=== PATIENT | female | born 1970 | race Two or more races ===

== ENCOUNTER → 2024-08-30 | Outpatient (CLI) | payer MEDICAID, SELFPAY ==
--- NOTE | 2024-08-30 09:15 | XR_ITS ---
Examination: Screening digital mammography, bilateral Computer aided detection 3-D breast Tomosynthesis, bilateral Date and time of exam: 08/30/2024, 9:12 AM Comparisons: Not available. If prior mammograms can be obtained recommend comparison with today's Indications: Screening Technique: Nonmagnified MLO, CC views of the breasts to been obtained, reconstructed from 3-D Tomosynthesis images. R2 computer aided detection program utilized for evaluation of suspicious masses and/or abnormal calcifications. 3-D Tomosynthesis images obtained. Technologist: Findings: There are scattered areas of fibroglandular density. No evidence of abnormal masses or suspicious calcifications. Impression: BI-RADS category 1: Negative findings (within normal) Recommend 1 year follow-up mammogram
== END | disposition home or self-care (01) ==
LOC: CDIM 08:55
DX: Z12.31 Encounter for screening mammogram for malignant neoplasm of breast (principal); R92.313 Mammographic fatty tissue density, bilateral breasts
CPT/HCPCS: 77063; 77067

== ENCOUNTER 2025-04-22 06:40 | Day surgery (SDC) | payer MEDICAID, SELFPAY ==
[2025-04-19 11:41] VITALS: BMI 32.8
[2025-04-22] VITALS (9 sets, daily range): BP systolic 101–155; BP diastolic 67–115; PULSE 67–76; RESP 12–19; TEMP 36.4–36.8; O2SAT 93–100; BMI 32.5
[2025-04-22] MEDS: SODIUM CHLORIDE 0.9% 500 ML 500 ML 125 ML IV (07:41)
[2025-04-22] MEDS: MIDAZOLAM INJ 1 MG/ML VIAL 2 ML (ASD USE ONLY) 2 MG IVP (07:41)
[2025-04-22] MEDS: fentaNYL CIT INJ 50 mCg/ML AMP 2ML (ASD USE ONLY) IVP (07:41)
--- NOTE | 2025-04-22 07:52 | SUR.OPER ---
Dr Joyce aware of elevated B/P-no new orders recieved
== END 2025-04-22 08:35 | disposition home or self-care (01) ==
PROVIDERS: PCP Obstetrics & Gynecology; Referring Provider Surgery; Visit Provider Surgery
PROC: 0DBE8ZX Excision of Large Intestine, Via Natural or Artificial Opening Endoscopic, Diagnostic (ICD-10-PCS; CPT 45380; principal; 2025-04-22 07:30)
DX: K64.1 Second degree hemorrhoids (principal); K64.4 Residual hemorrhoidal skin tags; K62.5 Hemorrhage of anus and rectum
CPT/HCPCS: 45378; 81025; J1200; J2250; J3010; J7999